=== PATIENT | male | born 1965 | race Caucasian/White ===

== ENCOUNTER → 2017-10-13 | Outpatient (CLI) | payer BC, OTHER | LOC: BMCIMAGING 07:16 | PROVIDERS: ATTEND Physician Assistant Medical | DX: M67.48 Ganglion, other site (principal); R10.11 Right upper quadrant pain ==

== ENCOUNTER → 2019-02-09 | Outpatient (CLI) | payer OTHER | LOC: BMCIMAGING 07:19 | PROVIDERS: ATTEND Internal Medicine | DX: R10.84 Generalized abdominal pain (principal) ==

== ENCOUNTER → 2019-02-25 | Outpatient (CLI) | payer OTHER | LOC: FIMAGING 07:52 ==